=== PATIENT | female | born 2005 | race Two or more races ===

== ENCOUNTER → 2024-12-01 | Outpatient (CLI) | payer BC, SELFPAY ==
[2024-12-01 16:36] LABS: Basophils % (Auto) 0 % (0-2.5); Eosinophils # (Auto) 0.1 Thou/mm3 (0.0-0.5); Eosinophils % (Auto) 1 % (0-10); Hemoglobin 12.8 g/dL (12.0-16.0); Immature Granulocytes % (Auto) 0 % (0-0); Immature Granulocytes Auto 0.03 Thou/mm3 (0.00-0.00); Lymphocytes % (Auto) 36 % (10-50); Mean Corpuscular HGB Conc 35.6 g/dl (31.0-37.0); Mean Corpuscular Hemoglobin 31.4 pg (25.0-35.0); Mean Corpuscular Volume 89 fL (80-100); Monocytes # (Auto) 0.4 Thou/mm3 (0.0-0.8); Monocytes % (Auto) 5 % (0-12); Neutrophils # (Auto) 4.7 Thou/mm3 (1.8-7.7); Neutrophils % (Auto) 57 % (37-80); Nucleated Red Blood Cell % 0 /100 WBC (0); Platelet Count 296 Thou/mm3 (140-440); RDW Standard Deviation 42.9 fL (36.4-46.3); Red Blood Count 4.07 Miln/mm3 (4.00-5.20); White Blood Count 8.2 Thou/mm3 (3.6-11.0)
[2024-12-01 16:53] LABS: Albumin, Serum 3.9 gm/dL (3.5-5.0); Anion Gap 11 (7-16); BUN/Creatinine Ratio 9 Ratio (12-20); Blood Urea Nitrogen 10 mg/dL (9-23); Calcium 8.8 mg/dL (8.3-10.6); Calcium (Corrected) 8.9 mg/dL (8.5-10.1); Carbon Dioxide 26.3 mMol/L (20.0-31.0); Chloride 106 mMol/L (98-107); Creatinine (Component) 1.1 mg/dL (0.6-1.3); Glucose 86 mg/dL (74-106); Osmolality,Calculated 282 (275-295); Phosphorous 3.6 mg/dL (2.4-5.1); Potassium 3.7 mMol/L (3.4-5.1); Sodium 143 mMol/L (136-145); eGFR > 60 See Note
[2024-12-01 17:27] LABS: Partial Thromboplastin Time 29.1 Seconds (22.0-36.0); Prothrombin Time 10.5 Seconds (9.0-12.2)
[2024-12-01 17:37] LABS: Hepatitis A Antibody IgM Non Reactive (Non React); Hepatitis B Core Antibody IgM Non Reactive (Non React); Hepatitis B Surface Antigen Non Reactive (Non React); Hepatitis C Antibody Non Reactive (Non React)
== END | disposition home or self-care (01) ==
LOC: COPL 15:19
PROVIDERS: PCP Nurse Practitioner Family; Referring Provider Internal Medicine; Visit Provider Internal Medicine
DX: E78.5 Hyperlipidemia, unspecified (principal); I10 Essential (primary) hypertension; N08 Glomerular disorders in diseases classified elsewhere; R80.9 Proteinuria, unspecified
CPT/HCPCS: 36415; 80069; 80074; 85025; 85610; 85730; 86021; 86036; 86038; 86160; 86200; 86225

== ENCOUNTER → 2024-12-05 | Outpatient (CLI) | payer BC, SELFPAY ==
[2024-12-05 13:17] LABS: Protein Total, Urine 18 mg/dL (1-14)
[2024-12-05 13:24] LABS: Protein Total, 24 hr Urine 167 mg/24hr (<149); Protein Total, Urine Volume 925 mL/24hr (600-1800)
== END | disposition home or self-care (01) ==
LOC: SLDO 11:38
PROVIDERS: PCP Internal Medicine; Referring Provider Internal Medicine; Visit Provider Internal Medicine
DX: R80.9 Proteinuria, unspecified (principal); I10 Essential (primary) hypertension; E78.5 Hyperlipidemia, unspecified; N08 Glomerular disorders in diseases classified elsewhere
CPT/HCPCS: 84156

== ENCOUNTER 2025-01-21 21:30 | Emergency (ER) | payer BC, SELFPAY ==
[2025-01-21 21:43] VITALS: BP 108/74; PULSE 105; RESP 20; TEMP 37; O2SAT 96
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
[2025-01-21 23:31] LABS: HCG Qualitative,Urine Negative
--- NOTE | 2025-01-21 23:47 | PC.NURSE ---
called pharmacy test neg
[2025-01-21] MEDS: IBUPROFEN TAB 600 MG TABLET PO (23:52)
== END 2025-01-22 01:11 | disposition home or self-care (01) ==
PROVIDERS: Physician Assistant; Emergency Provider Emergency Medicine; PCP Family Medicine
DX: S40.012A Contusion of left shoulder, initial encounter (principal); S70.01XA Contusion of right hip, initial encounter; V58.5XXA Driver of pick-up truck or van injured in noncollision transport accident in traffic accident, initial encounter; Y92.411 Interstate highway as the place of occurrence of the external cause; R07.9 Chest pain, unspecified; R05.9 Cough, unspecified; T59.811A Toxic effect of smoke, accidental (unintentional), initial encounter
CPT/HCPCS: 71046; 73030; 73502; 81025; 99283; A9270

== ENCOUNTER 2025-01-26 19:26 | Emergency (ER) | payer BC, SELFPAY ==
[2025-01-26 19:26] VITALS: BMI 44.2
[2025-01-26 19:49] VITALS: BP 129/90; PULSE 111; RESP 18; TEMP 37.3; O2SAT 98
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
[2025-01-26 22:38] VITALS: BP 122/84; PULSE 90; RESP 18; TEMP 36.6; O2SAT 98
== END 2025-01-26 22:51 | disposition home or self-care (01) ==
PROVIDERS: Emergency Provider Emergency Medicine; PCP Family Medicine
DX: S00.93XA Contusion of unspecified part of head, initial encounter (principal); R07.89 Other chest pain; V89.2XXA Person injured in unspecified motor-vehicle accident, traffic, initial encounter
CPT/HCPCS: 99282

== ENCOUNTER 2025-01-27 00:41 | Emergency (ER) | payer BC, SELFPAY ==
[2025-01-27 00:42] VITALS: BMI 44.2
[2025-01-27 00:50] VITALS: BP 137/97; PULSE 100; RESP 18; TEMP 36.8; O2SAT 98
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
[2025-01-27] MEDS: ONDANSETRON ODT 4 MG TABRAP PO (01:19)
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
[2025-01-27] MEDS: HYDROcodone/APAP 5/325 TABLET 1 TAB PO (02:41)
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
== END 2025-01-27 02:42 | disposition home or self-care (01) ==
PROVIDERS: Emergency Provider Emergency Medicine; PCP Family Medicine
DX: S09.90XA Unspecified injury of head, initial encounter (principal); S19.9XXA Unspecified injury of neck, initial encounter; S09.93XA Unspecified injury of face, initial encounter; V89.2XXA Person injured in unspecified motor-vehicle accident, traffic, initial encounter
CPT/HCPCS: 70450; 70486; 72125; 99283; Q0162; A9270